=== PATIENT | female | born 1970 | race African-American/Black ===

== ENCOUNTER → 2017-03-27 | Day surgery (SDC) | payer BC ==
[~2017-03-27] MED LIST: ALEVE220 MG PO; IBUPROFEN 200200 M1 PO; NORCO 5-325 TA1 EACH PO; NORVASC5 MG PO; TYLENOL325 MG PO
--- NOTE | 2017-03-27 14:43 | EKG ---
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1970 Requested By: Chris Sorto Order Number: [id number] Whitley MD: Eladio Ayala Measurements Intervals [place] Rate: 60 P: 41 GA: 183 QRS: 25 QRSD: 82 T: -17 QT: 428 QTc: 428 Interpretive Statements Sinus rhythm Borderline T abnormalities, inferior leads Baseline wander in lead(s) II,III,aVF No previous ECG available for comparison Electronically Signed On 03-27-2017 14:43:31 COMPOSER TEACHING ARTIST by Eladio Ayala [email or web address] <ELECTRONICALLY SIGNED> By: Eladio Ayala MD, [facility] 03/27/17 1443 Eladio Ayala MD, FAC /EPI
--- NOTE | 2017-04-03 11:42 | OP ---
[address] [address] OPERATIVE REPORT Name: BRAXTON SILVA Room: [facility]#: [id number] Admission: 03/27/17 Attend Phys: Mando Leonard II Discharge: Date of : 70 Report #: [id number] THIS REPORT FOR: //name// CC: Libby Leonard DATE OF SERVICE: 03/27/2017 PREOPERATIVE DIAGNOSIS: Right knee medial meniscus tear. POSTOPERATIVE DIAGNOSES: 1. Right knee medial meniscus tear. 2. Grade 3 chondromalacia, patellofemoral groove. PROCEDURE PERFORMED: 1. Right knee arthroscopic surgery with partial medial meniscectomy. 2. Abrasion chondroplasty, patellofemoral groove. SURGEON: Mando Leonard II, DRAFTER MARINE: SALLY Zarate. ANESTHESIA: Per operative record. ESTIMATED BLOOD LOSS: Minimal. ANTIBIOTICS: Per operative record. DRAINS: None. COMPLICATIONS: None. CONDITION OF THE PATIENT: Stable to recovery room. DESCRIPTION OF PROCEDURE: The patient was taken to the operative suite, placed supine on the OR table, given appropriate anesthesia. The patient's left lower extremity was sterilely prepped and draped with a well-padded knee arthroscopic ny. Surgery began by medial and lateral portal incision. The arthroscope was advanced in the joint. There was found to be a posterior horn medial meniscus tear ____ around the medial margin. This was debrided utilizing baskets and shaver back to good stable margins. There was also shown to be grade 3 chondromalacia of the patellofemoral groove near the weightbearing surface with a small osteochondral defect in this region. Utilizing a shaver, an abrasion chondroplasty was performed on the bleeding bone along the patellofemoral groove and then smoothed utilizing the Coblation wand in appropriate fashion. Final irrigation was performed of the knee, [place] [address] OPERATIVE REPORT Name: BRAXTON SILVA Room: [facility]#: [id number] Admission: 03/27/17 Attend Phys: Mando Leonard II Discharge: Date of : 70 Report #: [id number] drained of arthroscopic fluid, closed with 4-0 nylon in simple fashion. Dermabond and sterile dressing were applied. The patient was transferred to recovery room in stable condition. Counts were correct throughout the procedure. <ELECTRONICALLY SIGNED> By: Mando Leonard II, DO 04/03/17 1142 0822 0916Mando Leonard II, DO /nt
== END | disposition home or self-care (01) ==
LOC: M.SUR 07:32
DX: M23.221 Derangement of posterior horn of medial meniscus due to old tear or injury, right knee (principal); M94.261 Chondromalacia, right knee; M22.2X1 Patellofemoral disorders, right knee; Z88.0 Allergy status to penicillin; Z79.899 Other long term (current) drug therapy; Z79.891 Long term (current) use of opiate analgesic